=== PATIENT | female | born 1975 | race American Indian/Alaskan Native ===

== ENCOUNTER 2019-10-24 11:02 | Outpatient (CLI) | payer OTHER ==
[2019-10-24] MEDS ORDERED: LACTATED RINGERS 500 ML IV ONE (11:54)
[2019-10-24 12:25] VITALS: BP 122/74
--- NOTE | 2019-10-24 13:44 | Ultrasound Report ---
ULTRASOUND BIOPHYSICAL PROFILE INDICATION: 35 WEEKS, BLEEDING, LARGE BABY, H/O IVF. COMPARISON: None available. FINDINGS: heart rate is 141 beats per minute. breathing movement = 2 Gross body movement = 2 tone = 2 Qualitative amniotic fluid volume = 2 IMPRESSION: biophysical profile = 04/17 Signer Name: Getachew Campbell Jr, MD Signed: 10/24/2019 1:40 PM Workstation Name: [id number]
--- NOTE | 2019-10-24 13:47 | Ultrasound Report ---
OB ULTRASOUND FOLLOW-UP INDICATION: 35 WEEKS,WITH SOME VAG BLEEDING COMPARISON: None FINDINGS: A single intrauterine is identified in cephalic position. Heart rate measures 141 bpm. The placenta is left lateral, grade 3. No placental abruption is identified. Amniotic fluid volume is wit hin normal limits with ADOLPH measuring 11.5. heart rate measures 141 beats per minutes. IMPRESSION: Viable single intrauterine as described. No evidence for abruption. Signer Name: Getachew Campbell Jr, MD Signed: 10/24/2019 1:42 PM Workstation Name: [id number]
== END 2019-10-24 13:23 | disposition left against medical advice (07) ==
LOC: TRG 11:02
PROVIDERS: ATTEND Obstetrics & Gynecology
DX: O46.93 Antepartum hemorrhage, unspecified, third trimester (principal); O36.63X0 Maternal care for excessive fetal growth, third trimester, not applicable or unspecified; O09.523 Supervision of elderly multigravida, third trimester; O47.1 False labor at or after 37 completed weeks of gestation; Z3A.37 37 weeks gestation of pregnancy
CPT/HCPCS: 36415; 59025; 76816; 76819; 82731; J7120